=== PATIENT | male | born 1965 | race Caucasian/White ===

== ENCOUNTER 2018-02-03 21:19 | Emergency (ER) | payer SELFPAY ==
[2018-02-03 21:44] VITALS: TEMP 98.2; O2SAT 96
--- NOTE | 2018-02-03 21:53 | ED.PDOC ---
History of Present Illness - General Chief Complaint: ENT Problem Stated Complaint: moth in left ear Time Seen by Provider: 02/03/18 21:51 Source: patient Exam Limitations: no limitations - History of Present Illness Initial Comments: Roque Espino 52 y/o male stated felt moth got into his left ear tonight feels pain and scratchy feeling Timing/Duration: abrupt Severity: mild EENT Location: ear (L) Prearrival Treatment: no prearrival treatment Presenting Symptoms: moth left ear Improving Factors: nothing, eating Associated Symptoms: other - see hpi Allergies/Adverse Reactions: Allergies Codeine Allergy (Verified 02/03/18 21:45) Home Medications: Ambulatory Orders NK [NK] 02/03/18 Review of Systems - Review of Systems Constitutional: States: no symptoms reported EENTM: States: see HPI Respiratory: States: no symptoms reported Cardiology: States: no symptoms reported Gastrointestinal/Abdominal: States: no symptoms reported Genitourinary: States: no symptoms reported Past Medical History (General) - Patient Medical History Hx Seizures: No Hx Asthma: No Surgical History: no surgical history - Vaccination History Immunizations Up to Date: No - Triage Comment ED Triage Comment: flet moth fly into left ear, 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 to remove 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 Family Medical History - Family History Father Family History: Unknown Physical Exam - Physical Exam General Appearance: Alert, Comfortable, No apparent distress Eye Exam: bilateral normal Ear Exam: left ear: other - moth , bilateral ear: auricle normal, canal normal, TM normal Nasal Exam: normal inspection Throat Exam: normal mouth inspection, pharynx normal Neck: non-tender, supple, normal inspection, trachea midline Cardiovascular/Respiratory: regular rate, rhythm, no M/R/G, normal peripheral pulses, no JVD Abdominal Exam: non-tender, no organomegaly Neurologic: no motor/sensory deficits, alert, oriented x 3 Skin Exam: normal color, warm/dry Progress - Progress Progress: 02/03/18 21:54 Vital Signs - 8 hr 02/03/18 21:41 Temperature 98.2 F Pulse Rate [ 96 H Right] Respiratory 18 Rate Blood Pressure 160/108 [Left Arm] O2 Sat by Pulse 96 Oximetry Procedures - Foreign Body Removal Foreign Body Removal: other - moth left ear Foreign Body Physician Comment:: pulled out with forcep left TM normal after FB removal live moth Departure - Departure Clinical Impression: Foreign body in left auditory canal Qualifiers: Encounter type: initial encounter Qualified Code(s): T16.2XXA - Foreign body in left ear, initial encounter Time of Disposition: 22:04 Disposition: Discharge to Home or Self Care Condition: Good Departure Forms: ED Discharge - Pt. Copy, Patient Portal Self Enrollment Referrals: Jeramie Gusman MD [Primary Care Provider] - 1-2 Weeks Home Medications: Ambulatory Orders NK [NK] 02/03/18 Additional Instructions: may take Ibuprofen (over the counter as needed for pain) 3-4 tabs 3 x a day; return to ER as needed
[2018-02-03 22:22] VITALS: BP 150/96
== END 2018-02-03 22:22 | disposition home or self-care (01) ==
LOC: ER 21:19
DX: T16.2XXA Foreign body in left ear, initial encounter (principal); Z88.5 Allergy status to narcotic agent; Y92.9 Unspecified place or not applicable

== ENCOUNTER 2018-04-28 12:35 | Emergency (ER) | payer SELFPAY ==
[2018-04-28] MEDS ORDERED: NITROGLYCERIN 0.4 MG 25 EA TAB SL ONE (12:58)
[2018-04-28] MEDS ORDERED: SODIUM CHLORIDE 0.9% (FLUSH) 10 ML SYG IV PRN (12:58)
[2018-04-28] MEDS ORDERED: ONDANSETRON INJ 4 MG/2 ML VIAL IV ONE (12:58)
[2018-04-28] MEDS ORDERED: ASPIRIN TABLET 325 MG TAB PO ONE (12:58)
--- NOTE | 2018-04-28 13:02 | ED.PDOC ---
History of Present Illness - General Chief Complaint: Chest Pain/WA Stated Complaint: chest pressure Time Seen by Provider: 04/28/18 12:51 Source: patient Exam Limitations: no limitations - History of Present Illness Initial Comments: Has had chest pressure with SOB and nausea x 1 week. Found to have HTN by pt's PCP and started on Lisinopril/ hctz 3 days ago. His sx's have not improved Denies any exercise intolerance Timing/Duration: 1 week Severity: moderate Location: substernal Activities at Onset: none Prior Chest Pain/Cardiac Workup: no prior chest pain Improving Factors: nothing Worsening Factors: nothing Nitro Today/Relief: no nitro taken today Aspirin Treatment Today: no aspirin today Associated Symptoms: chest pain, diaphoresis, nausea/vomiting, shortness of breath, weakness Allergies/Adverse Reactions: Allergies Codeine Allergy (Verified 02/03/18 21:45) Home Medications: Ambulatory Orders Hydroxyzine HCl [Hydroxyzine Hydrochloride] 25 mg PO Q8HR PRN #20 tab 04/28/18 Hyoscyamine Sulfate [Levsin/Sl] 0.125 mg SL Q4HR PRN #20 sub 04/28/18 Lisinopril & Hydrochlorothiazi [Lisinopril/Hctz 20-25 mg] 1 tab PO DAILY 04/28/18 Pantoprazole Sodium [Protonix] 20 mg PO ACBK #14 tablet 04/28/18 Review of Systems - Review of Systems Constitutional: States: diaphoresis, malaise, weakness EENTM: States: no symptoms reported Respiratory: States: short of breath. Denies: cough Cardiology: States: chest pain. Denies: edema, syncope Gastrointestinal/Abdominal: States: nausea. Denies: abdominal pain, diarrhea, vomiting Genitourinary: States: no symptoms reported Musculoskeletal: States: muscle pain Skin: States: no symptoms reported Neurological: States: weakness. Denies: headache, paresthesia Endocrine: States: no symptoms reported Hematologic/Lymphatic: States: no symptoms reported Past Medical History (General) - Patient Medical History Hx Seizures: No Hx Asthma: No Hx Diabetes: No Family Medical History - Family History Father Family History: Unknown Physical Exam - Physical Exam General Appearance: Alert, Anxious Eyes, Ears, Nose, Throat Exam: PERRL/EOMI Neck: supple, normal inspection Respiratory: chest non-tender, lungs clear, normal breath sounds Cardiovascular/Chest: normal peripheral pulses, regular rate, rhythm, no edema Gastrointestinal/Abdominal: normal bowel sounds, non tender, soft Extremity: normal range of motion, non-tender, normal inspection, no pedal edema Neurologic: alert, normal mood/affect, oriented x 3 Skin Exam: normal color, warm/dry Lymphatic: no adenopathy Progress - EKG/XRAY/CT EKG: Sinus, no ST T wave changes Comments: rate 87, VT 148, QRS 108 Departure - Departure Clinical Impression: Anxiety Chest pain Qualifiers: Chest pain type: precordial pain Qualified Code(s): R07.2 - Precordial pain Disposition: Discharge to Home or Self Care Condition: Fair Departure Forms: ED Discharge - Pt. Copy, Patient Portal Self Enrollment Instructions: DI for Chest Pain Referrals: Jeramie Gusman MD [Active Staff] - 1-2 Weeks Prescriptions: Hyoscyamine Sulfate [Levsin/Sl] 0.125 mg SL Q4HR PRN #20 sub PRN Reason: Mild To Moderate Pain Hydroxyzine HCl [Hydroxyzine Hydrochloride] 25 mg PO Q8HR PRN #20 tab PRN Reason: Anxiety Pantoprazole Sodium [Protonix] 20 mg PO ACBK #14 tablet Home Medications: Ambulatory Orders Hydroxyzine HCl [Hydroxyzine Hydrochloride] 25 mg PO Q8HR PRN #20 tab 04/28/18 Hyoscyamine Sulfate [Levsin/Sl] 0.125 mg SL Q4HR PRN #20 sub 04/28/18 Lisinopril & Hydrochlorothiazi [Lisinopril/Hctz 20-25 mg] 1 tab PO DAILY 04/28/18 Pantoprazole Sodium [Protonix] 20 mg PO ACBK #14 tablet 04/28/18
--- NOTE | 2018-04-28 13:16 | RAD ---
Procedure: XR CHEST 1 VIEW Exam Date: 04/28/2018 Ordering Provider: Reynaldo Del Cid Clinical Indication: chest pain Comparison: None Findings: Cardiomediastinal silhouette is within normal limits. No focal lung consolidation. No pleural effusion. No pneumothorax. No acute osseous abnormality. Impression: 1. No acute abnormality in the chest. Electronically signed by: Colin Lund MD 04/28/2018 1:15 PM FINANCIAL ADVISER
[2018-04-28] MEDS ORDERED: ALUM & MAG HYDROX-SIMETHICONE 30 ML, LIDOCAINE VISCOUS 2% 15 ML PO ONE ×2 (13:58)
[2018-04-28] MEDS ORDERED: DICYCLOMINE HCL 20 MG TAB PO ONE (13:59)
[2018-04-28] MEDS ORDERED: LIDOCAINE HCL 2% (MOUTH-THROAT) 15 ML UD ONE (14:07)
[2018-04-28] MEDS ORDERED: ALUM & MAG HYDROX-SIMETHICONE 30 ML UD ONE (14:07)
[2018-04-28] MEDS ORDERED: MAGNESIUM SULFATE INJ 1 GM in SODIUM CHLORIDE 0.9% 100ML 100 ML IVPB ONE (14:41)
[2018-04-28] MEDS ORDERED: MAGNESIUM SULFATE INJ 1 GM/2 ML VIAL ONE (14:44)
[2018-04-28] MEDS ORDERED: SODIUM CHLORIDE 0.9% 100ML 100 ML IVPB ONE (14:45)
[2018-04-28 16:06] VITALS: BP 125/89; TEMP 97.9; O2SAT 96
== END 2018-04-28 16:05 | disposition home or self-care (01) ==
LOC: ER 12:35
DX: R07.2 Precordial pain (principal); F41.9 Anxiety disorder, unspecified; I10 Essential (primary) hypertension; Z79.899 Other long term (current) drug therapy; Z88.5 Allergy status to narcotic agent
CPT/HCPCS: 36415; 71045; 80048; 82550; 82553; 83880; 84484; 85025; 85379; 85610; 85730; 93005; J2060; J2405; J3475; J7050

== ENCOUNTER 2018-11-23 11:56 | Emergency (ER) | payer SELFPAY ==
[2018-11-23] MEDS ORDERED: ONDANSETRON ODT 8 MG TAB SL ONE (12:21)
[2018-11-23] MEDS ORDERED: ALUM & MAG HYDROX-SIMETHICONE 30 ML, LIDOCAINE VISCOUS 2% 15 ML PO ONE ×2 (12:21)
[2018-11-23] MEDS ORDERED: SUCRALFATE 1 GM/10 ML 1 GM UD PO ONE (12:21)
[2018-11-23] MEDS ORDERED: ALUM & MAG HYDROX-SIMETHICONE 30 ML UD ONE (12:25)
[2018-11-23] MEDS ORDERED: LIDOCAINE HCL 2% (MOUTH-THROAT) 15 ML UD ONE (12:25)
--- NOTE | 2018-11-23 12:47 | RAD ---
EXAM DESCRIPTION: Abdomen Series CLINICAL HISTORY: epigastric pain, nv 1 week COMPARISON: Chest radiograph 04/28/2018. TECHNIQUE: Upright PA chest with frontal views of the abdomen FINDINGS: The lungs are clear without pleural effusion or pneumothorax. The heart is normal in size. The bowel gas pattern is normal without evidence of obstruction. No free subdiaphragmatic air. No abnormal calcifications. No significant stool burden. No acute osseous abnormality. IMPRESSION: 1. Unremarkable acute abdominal series. Electronically signed by: Adam Zhao DO 11/23/2018 12:45 PM CDT
[2018-11-23] MEDS ORDERED: SODIUM CHLORIDE 0.9% 1000ML 1,000 ML IVS ONE (13:58)
[2018-11-23] MEDS ORDERED: PANTOPRAZOLE SODIUM IV 40 MG VIAL IV ONE (13:58)
--- NOTE | 2018-11-23 14:29 | CT ---
EXAM DESCRIPTION: CT ABDOMEN AND PELVIS WITH CONTRAST CLINICAL HISTORY: epigastric pain 1 week COMPARISON: Abdominal radiograph same day. TECHNIQUE: CT of the abdomen and pelvis are performed during IV bolus administration. No oral contrast was given. FINDINGS: The lung bases are clear. The liver is normal in contour and enhancement. The gallbladder is unremarkable without calcified gallstone. No biliary ductal dilatation. The Spleen, pancreas, and kidneys are unremarkable. No hydronephrosis or nephrolithiasis. Subcentimeter renal hypodensities, likely representing small cysts. No focal bowel wall thickening or bowel obstruction. The appendix is normal. There is no lymphadenopathy, inflammation, or free fluid observed. The partially decompressed bladder is unremarkable. The prostate is borderline enlarged. No acute osseous abnormality. Partial fusion across the inferior/synovial aspect bilateral sacroiliac joints are noted, nonspecific, but may represent chronic sacroiliitis. IMPRESSION: 1. No acute intra-abdominal/pelvic process is seen on CT. 2. Other findings as above. This exam was performed according to our departmental dose-optimization program, which includes automated exposure control, adjustment of the mA and/or kV according to patient size and/or use of iterative reconstruction technique. Electronically signed by: Adam Zhao DO 11/23/2018 2:27 PM CDT
--- NOTE | 2018-11-23 15:03 | ED.PDOC ---
History of Present Illness - General Chief Complaint: Abdominal Pain Stated Complaint: epigastric pain,vomiting Time Seen by Provider: 11/23/18 11:59 Source: patient Exam Limitations: no limitations - History of Present Illness Initial Comments: The patient is a 53-year-old Cauc[place] male presenting to the emergency room secondary to a couple weeks wastric discomfort. He is not sure that anything makes it better or worse. No fever. He has had a long-standing history of gastritis and esophagitis in the past. He has had a stomach ulcer in the past. He denies significant alcohol intake. There is a questionable history of pancreatitis. No known history of any gallbladder problems. No history of any significant vascular disease. He does not take any routine medications. He does take Tums or Maalox frequently however. Timing/Duration: unsure Severity: moderate Improving Factors: nothing Worsening Factors: nothing Associated Symptoms: loss of appetite, malaise, nausea/vomiting Allergies/Adverse Reactions: Allergies Codeine Allergy (Verified 02/03/18 21:45) Home Medications: Ambulatory Orders Hydroxyzine HCl [Hydroxyzine Hydrochloride] 25 mg PO Q8HR PRN #20 tab 04/28/18 Hyoscyamine Sulfate [Levsin/Sl] 0.125 mg SL Q4HR PRN #20 sub 04/28/18 Lisinopril & Hydrochlorothiazi [Lisinopril/Hctz 20-25 mg] 1 tab PO DAILY 04/28/18 Pantoprazole Sodium [Protonix] 20 mg PO ACBK #14 tablet 04/28/18 Famotidine [Pepcid Tab] 20 mg PO BID #60 tab 11/23/18 Ondansetron Odt [Zofran ODT] 4 mg PO Q8HR PRN #5 tab 11/23/18 Sucralfate Tab [Carafate Tab] 1 gm PO QID #120 tab 11/23/18 Review of Systems - Review of Systems Constitutional: States: no symptoms reported EENTM: States: no symptoms reported Respiratory: States: no symptoms reported Cardiology: States: no symptoms reported Gastrointestinal/Abdominal: States: abdominal pain, nausea, vomiting Genitourinary: States: no symptoms reported Musculoskeletal: States: no symptoms reported Skin: States: no symptoms reported Neurological: States: anxiety Endocrine: States: no symptoms reported All other Systems: No Change from Baseline Past Medical History (General) - Patient Medical History Hx Seizures: No Hx Stroke: No Hx Asthma: No Hx Congestive Heart Failure: No Hx Hypertension: Yes Hx Thyroid Disease: No Hx Diabetes: No - Vaccination History Hx Influenza Vaccination: No Hx Pneumococcal Vaccination: No - Social History Hx Tobacco Use: Yes Hx Substance Use: Yes - Marijuana-smoked some last week Family Medical History - Family History Father Family History: Unknown Physical Exam - Physical Exam General Appearance: Alert, Anxious, No apparent distress Eye Exam: bilateral normal Ears, Nose, Throat: hearing grossly normal, normal ENT inspection Neck: full range of motion, supple Respiratory: lungs clear, normal breath sounds, no respiratory distress, no accessory muscle use Cardiovascular/Chest: normal peripheral pulses, regular rate, rhythm, no edema Peripheral Pulses: radial,right: 2+, radial,left: 2+, dorsalis pedis,right: 2+, dorsalis pedis,left: 2+ Gastrointestinal/Abdominal: non tender, soft Rectal Exam: deferred Back Exam: no CVA tenderness, no vertebral tenderness Extremity: non-tender, normal inspection, no pedal edema, normal capillary refill Neurologic: lump maker II-XII nml as tested, alert, normal mood/affect - he is anxious, oriented x 3 Skin Exam: normal color Comments: Vital Signs - 24 hr 11/23/18 11/23/18 11/23/18 12:09 12:20 13:00 Temperature 98.7 F Pulse Rate [ 82 65 75 Left Brachial] Respiratory 20 16 16 Rate Blood Pressure 175/112 138/97 159/107 [Left Arm] O2 Sat by Pulse 97 100 97 Oximetry 11/23/18 14:22 Temperature Pulse Rate [ 78 Left Brachial] Respiratory 20 Rate Blood Pressure 163/104 [Left Arm] O2 Sat by Pulse 97 Oximetry Progress - Progress Progress: 11/23/18 15:01 the patient is a 53-year-old male presenting to the emergency room with epigastric pain that is most likely gastritis and esophagitis. Laboratory work and CT scan are reassuring. He is going to be placed on Carafate and omeprazole for the next month. He can continue his [id number] Zantac. He needs to obtain some liquid Maalox or Mylanta and use that as needed for the next few days. He needs to maintain a bland diet with small frequent meals. He needs to follow up with his primary care doctor later this coming week. Discussion about getting an upper endoscopy may be warranted given his history, in the near future. ER warnings are given for any worsening. - Results/Orders Results/Orders: 11/23/18 12:30 EKG STAT 11/23/18 13:58 Hold Metformin x 48Hrs [id number] Laboratory Results - last 24 hr 11/23/18 11/23/18 11/23/18 12:37 12:37 12:37 WBC 13.3 H RBC 5.43 Hgb 16.7 Hct 48.4 MCV 89.1 MCH 30.8 MCHC 34.6 RDW 13.6 Plt Count 173 MPV 8.8 Absolute Neuts (auto) 10.40 H Absolute Lymphs (auto) 2.00 Absolute Monos (auto) 0.80 Absolute Eos (auto) 0.10 Absolute Basos (auto) 0.00 Neutrophils % 77.6 Lymphocytes % 15.2 L Monocytes % 6.3 Eosinophils % 0.6 L Basophils % 0.3 PT 10.8 INR 1.08 PTT (SP) 24.7 D-Dimer, Quantitative 0.25 Sodium 138 Potassium 3.5 L Chloride 105 Carbon Dioxide 23 Anion Gap 13.5 BUN 16 Creatinine 0.85 BUN/Creatinine Ratio 18.8 Random Glucose 111 H Serum Osmolality 277.6 Lactic Acid Calcium 9.3 Magnesium 2.2 Total Bilirubin 1.0 AST 20 ALT 19 Alkaline Phosphatase 92 LD Total 118 Creatine Kinase 66 CK-MB (CK-2) 1.1 CK-MB (CK-2) % Not Reportable Troponin I < 0.02 Serum Total Protein 7.2 Albumin 4.1 Globulin 3.1 Albumin/Globulin Ratio 1.3 Amylase 88 Lipase 67 H TSH 0.27 L Urine Color Urine Appearance Urine pH Ur Specific [place] Urine Protein Urine Glucose (UA) Urine Ketones Urine Blood Urine Nitrite Urine Bilirubin Urine Urobilinogen Ur Leukocyte Esterase Urine RBC Urine WBC Ur Epithelial Cells Amorphous Sediment Urine Bacteria 11/23/18 11/23/18 12:37 13:30 WBC RBC Hgb Hct MCV MCH MCHC RDW Plt Count MPV Absolute Neuts (auto) Absolute Lymphs (auto) Absolute Monos (auto) Absolute Eos (auto) Absolute Basos (auto) Neutrophils % Lymphocytes % Monocytes % Eosinophils % Basophils % PT INR PTT (SP) D-Dimer, Quantitative Sodium Potassium Chloride Carbon Dioxide Anion Gap BUN Creatinine BUN/Creatinine Ratio Random Glucose Serum Osmolality Lactic Acid 1.4 Calcium Magnesium Total Bilirubin AST ALT Alkaline Phosphatase LD Total Creatine Kinase CK-MB (CK-2) CK-MB (CK-2) % Troponin I Serum Total Protein Albumin Globulin Albumin/Globulin Ratio Amylase Lipase TSH Urine Color Yellow Urine Appearance Sl cloudy Urine pH >= 9.0 H* Ur Specific [place] 1.015 Urine Protein Negative Urine Glucose (UA) Negative Urine Ketones Negative Urine Blood Negative Urine Nitrite Negative Urine Bilirubin Negative Urine Urobilinogen 0.2 Ur Leukocyte Esterase Negative Urine RBC 0 Urine WBC 0 Ur Epithelial Cells 0 Amorphous Sediment 3+ Urine Bacteria 0 CT abdomen and pelvis appears essentially benign as far as acute findings. Departure - Departure Clinical Impression: Abdominal pain Qualifiers: Abdominal location: epigastric Qualified Code(s): R10.13 - Epigastric pain Gastritis Qualifiers: Gastritis type: unspecified gastritis Chronicity: acute Gastritis bleeding: without bleeding Qualified Code(s): K29.00 - Acute gastritis without bleeding Disposition: Discharge to Home or Self Care Condition: Fair Departure Forms: ED Discharge - Pt. Copy, Patient Portal Self Enrollment Instructions: Gastritis (DC) Diet: bland diet Activity: increase activity as tolerated Referrals: JESENIA LAIRD IV, ROLL SETTER [Primary Care Provider] - 1-5 Days Prescriptions: Ondansetron Odt [Zofran ODT] 4 mg PO Q8HR PRN #5 tab PRN Reason: Nausea--Moderate Famotidine [Pepcid Tab] 20 mg PO BID #60 tab Sucralfate Tab [Carafate Tab] 1 gm PO QID #120 tab Home Medications: Ambulatory Orders Hydroxyzine HCl [Hydroxyzine Hydrochloride] 25 mg PO Q8HR PRN #20 tab 04/28/18 Hyoscyamine Sulfate [Levsin/Sl] 0.125 mg SL Q4HR PRN #20 sub 04/28/18 Lisinopril & Hydrochlorothiazi [Lisinopril/Hctz 20-25 mg] 1 tab PO DAILY 04/28/18 Pantoprazole Sodium [Protonix] 20 mg PO ACBK #14 tablet 04/28/18 Famotidine [Pepcid Tab] 20 mg PO BID #60 tab 11/23/18 Ondansetron Odt [Zofran ODT] 4 mg PO Q8HR PRN #5 tab 11/23/18 Sucralfate Tab [Carafate Tab] 1 gm PO QID #120 tab 11/23/18 Additional Instructions: the patient is a 53-year-old male presenting to the emergency room with epigastric pain that is most likely gastritis and esophagitis. Laboratory work and CT scan are reassuring. He is going to be placed on Carafate and Famotidine for the next month. He can continue his [id number] Protonix. He needs to obtain some liquid Maalox or Mylanta and use that as needed for the next few days. He needs to maintain a bland diet with small frequent meals. He needs to follow up with his primary care doctor later this coming week. Discussion about getting an upper endoscopy may be warranted given his history, in the near future. ER warnings are given for any worsening.
[2018-11-23 15:17] VITALS: BP 175/103; TEMP 98.5; O2SAT 99
== END 2018-11-23 15:18 | disposition home or self-care (01) ==
LOC: ER 11:56
DX: K29.00 Acute gastritis without bleeding (principal); I10 Essential (primary) hypertension; Z87.891 Personal history of nicotine dependence; Z79.899 Other long term (current) drug therapy; Z88.5 Allergy status to narcotic agent; Z87.11 Personal history of peptic ulcer disease
CPT/HCPCS: 36415; 74019; 74177; 80053; 81001; 82150; 82550; 82553; 83605; 83615; 83690; 83735; 84443; 84484; 85025; 85379; 85610; 85730; 93005; J7030